=== PATIENT | male | born 1985 | race Two or more races ===

== ENCOUNTER 2018-10-27 11:51 | Day surgery (SDC) | payer SELFPAY ==
[~2018-10-27] VITALS: Ht 172.7 cm; Wt 126.1 kg
[~2018-10-27 11:51] MED LIST: HYDR-3164 PO; HYDROmorphone 2 MG/ML VIAL IV PRN; IV RINGERS,LACTATED 1000ML 1,000 ML IV SCH; LIDOCAINE 1% PF 2 ML VIAL. ID PRN; ONDANSETRON PF 4 MG/2 ML VIAL. IV PRN; fentaNYL PF VIAL 100 MCG/2 ML VIAL IV PRN
[2018-10-27] MEDS ORDERED: ONDANSETRON PF 4 MG/2 ML VIAL. ONE (12:37)
[2018-10-27] MEDS ORDERED: fentaNYL PF VIAL 100 MCG/2 ML VIAL ONE ×2 (12:37→14:50)
[2018-10-27] MEDS ORDERED: PROPOFOL 20 ML IV ONE ×2 (12:37→14:26)
[2018-10-27] MEDS ORDERED: LIDOCAINE 2% PF Vial for OR 5 ML VIAL. ONE (12:37)
[2018-10-27] MEDS ORDERED: DEXAMETHASONE SOD PHOS 20 MG/5 ML VIAL. ONE (12:37)
[2018-10-27] MEDS ORDERED: MIDAZOLAM HCL/PF 2 MG/2 ML VIAL. ONE (12:37)
--- NOTE | 2018-10-27 13:23 | DISCH ---
DISCHARGE INSTRUCTIONS Condition on Discharge Condition on Discharge: Stable Activity After Discharge Activity Instructions for Disc: Other, see below Other activity instructions: NWB LLE Bathing Instructions: Shower-keep dressing dry Weight Bearing Status after Di: Non weight bearing Diet after Discharge Diet after Discharge: Regular Wound Incision Care Wound/Incision Care: Ice to area for comfort, Keep wound/cast CDI, Keep wound elevated, Do not change dressing Contacting the DR. after DC Call your doctor for: Concerns you may have Follow-Up Follow up with: Sarabjit in 2 wks MARÍA CHUA II, MD Oct 27, 2018 13:23
[2018-10-27] MEDS ORDERED: LIDOCAINE 1% 20 ML VIAL. ONE (13:37)
[2018-10-27] MEDS ORDERED: BUPIVACAINE MPF 0.5% 30 ML VIAL. ONE (13:37)
[2018-10-27] MEDS ORDERED: SEVOFLURANE 31 TO 60 MINUTES. IH ONE (14:37)
--- NOTE | 2018-10-27 14:53 | PDOC4 ---
Operative Note Operative Note date of procedure: 10/27/2018 Surgeon: Saul Chua Lubrication Servicer: Madeleine Kline, board certified orthodontist Preoperative diagnosis: Closed displaced left ankle fracture Postoperative diagnosis: Same Procedure performed: Open reduction internal fixation left distal fibula Anesthesia: Gen. Findings: Acute fracture with lateral talar shift Components inserted: [employer]hew 5 hole lateral distal fibula locking plate , 2.7mm lag screw Tourniquet time: less than 60 min Blood loss: 10mL Reason for procedure: Patient is a very pleasant young gentleman who had a twisting injury to his ankle and was seen in [facility]. He was splinted and sent to my clinic. Clinical radiographic examination were consistent with the above preoperative diagnosis and had a discussion of the risks, benefits, alternatives, and rationale to operative intervention and he elected to proceed. Description of procedure: Patient was greeted in the preoperative area by myself for the correct extremity was verified and marked. He was taken to the operative suite and his antibiotics were started as he was brought back. Once in the operating, he was transferred gently supine to the operating table and had successful induction of a general anesthetic. The splint was taken down and chlorhexidine pre-scrub was performed. All pressure points were padded. Nonsterile tourniquet applied to left upper extremity. He was then prepped and draped in our usual sterile fashion and we conducted our standard preoperative timeout. After this, I palpated marked surface anatomy and brayden a line from my standard lateral incision over his distal fibula. Skin was incised with a scalpel and subcutaneous tissues tissue was dissected with Metzenbaums. Hemostasis achieved with electrocautery. Identified the fascia and incised this in line with the skin incision. I then used periosteal elevator to expose the distal fibula in anticipation my plate application. I used a metal tipped suction device, small Rongeur, dental pick to debride the fracture site. After this, used a [id number] and direct digital manipulation to facilitate reduction and clamped the fracture. I inspected the fracture on AP oblique and lateral fluoroscopic imaging was happy with the reduction and hardware position. I then placed my plate against bone and made sure was in good position again using fluoroscopy to guide me. I then placed a 2.7 mm screw and leg fashion across the fracture siteAfter this, I secured the plate to the bone with a nonlocking screw , which I followed by placing locking screws distally and nonlocking screws proximal to the fracture site. Once I was happy with hardware position and fracture reduction, took my final images. External rotation stress test was negative. The wound was then thoroughly irrigated out the fascia was closed with simple interrupted #1 Vicryl followed by inverted interrupted 2-0 Vicryl for subcutaneous tissue. 3-0 nylon in mattress fashion for skin. I injected local anesthetic mixture around the ramiro-incisional soft tissues. All counts correct 2 prior wound closure. At the conclusion, the leg was cleansed and dried and a well-padded AO splint was placed after a sterile dressing. Patient was awakened from anesthesia. No complications. Tolerated surgery well. The conclusion of surgery, he was transferred gently supine to the recovery room cart and taken to PACU in a stable and extubated condition. Postoperative plan is to discharge the patient home, nonweightbearing for 6 weeks, I will see him back in 2 weeks, sooner should a problem arise SAUL CHUA II, MD Oct 27, 2018 14:53
[2018-10-27] MEDS: PROCHLORPERAZINE 10 MG/2 ML VIAL. IV PRN ×2 (15:44→15:58)
[2018-10-27] MEDS: fentaNYL PF VIAL 100 MCG/2 ML VIAL IV PRN ×2 (15:45→15:58)
[2018-10-27] MEDS ORDERED: BUPIVACAINE 0.5% 50 ML VIAL. ONE (15:46)
[2018-10-27] MEDS: MORPHINE SULFATE 2 MG/ML VIAL. IV PRN ×4 (15:46→16:38)
[2018-10-27] MEDS ORDERED: oxyCODONE/APAP 10/325 1 TAB TABLET PO ONE (16:30)
[2018-10-27] MEDS ORDERED: KETOROLAC 30 MG/ML VIAL. ONE (16:50)
[2018-10-27] MEDS ORDERED: OXYC1TAB22 PO (16:54)
[2018-10-27] MEDS ORDERED: KETOROLAC 30 MG/ML VIAL. IV ONE (17:30)
[2018-10-27 18:03] VITALS: BP 134/56
== END 2018-10-27 18:39 | disposition home or self-care (01) ==
LOC: SURG 11:51
PROVIDERS: ATTEND Orthopaedic Surgery Sports Medicine
DX: S82.62XA Displaced fracture of lateral malleolus of left fibula, initial encounter for closed fracture (principal); E11.9 Type 2 diabetes mellitus without complications; Z72.89 Other problems related to lifestyle; Z79.899 Other long term (current) drug therapy; Z79.84 Long term (current) use of oral hypoglycemic drugs; X50.1XXA Overexertion from prolonged static or awkward postures, initial encounter; Y93.89 Activity, other specified; Y92.89 Other specified places as the place of occurrence of the external cause; Y99.8 Other external cause status
CPT/HCPCS: 27792; 76000; 82962; C1713; J0690; J0780; J1100; J1170; J1885; J2001; J2250; J2270; J2405; J2704; J3010; J3490; C1776